=== PATIENT | female | born 1935 | race Caucasian/White ===

== ENCOUNTER → 2020-06-24 | Outpatient (CLI) | payer MEDICARE, OTHER ==
[~2020-06-24] MED LIST: ADVAIR 250-501 EACH INH; ANTIVERT 25MG T25 MG PO; ASPIRIN EC81 MG PO; BENTYL 10MG CAP10 MG PO; CALCIUM + VITA1 EACH PO; FISH OIL 1,0001 EACH PO; FLONASE 0.05% N16 GM; IRON325 M1 PO; LEVAQUIN500 MG PO; LEVAQUIN750 MG PO; LINZESS145 MCG PO; LIORESAL TAB 1010 MG PO; LIPITOR TAB 2020 MG PO; MIACALCIN NASA3.7 ML; MICROZIDE12.5 MG PO; NASONEX17 GM; NITROSTAT0.4 MG SL; PEPCID40 MG PO; PROAIR HFA8.5 GM INH; PROTONIX40 MG PO; SINGULAIR10 MG PO; SPIRIVA RESPIMAT4 GM INH; TOPROL XL100 MG PO; TYLENOL 500 MG500 MG PO; VENTOLIN HFA 66.7 GM INH; ZANTAC 150 MG150 MG PO
== END ==
LOC: EXRD 11:37
DX: R06.02 Shortness of breath (principal); J43.9 Emphysema, unspecified; R91.8 Other nonspecific abnormal finding of lung field
CPT/HCPCS: 71046

== ENCOUNTER → 2020-07-21 | Outpatient (CLI) | payer MEDICARE, OTHER | LOC: ECHO 08:51 → NM 10:00 | DX: R07.9 Chest pain, unspecified (principal) | CPT/HCPCS: ECHO; 78452; 93017; 93306; A9502; J2785 ==